=== PATIENT | male | born 1965 ===

== ENCOUNTER 2021-05-13 18:20 | Emergency (ER) | payer OTHER, SELFPAY ==
[2021-05-13 18:26] VITALS: BP 148/107; PULSE 96; RESP 18; TEMP 36.4; O2SAT 98
--- NOTE | 2021-05-13 18:30 | DI.RAD_ITS ---
Exam(s) XR SHOULDER RT COMPLETE 2+V EXAM: XR SHOULDER RT COMPLETE 2+V CLINICAL HISTORY: proximal humerus pain. TECHNIQUE: 2D digital imaging was performed. COMPARISON: No exams were available for comparison FINDINGS: BONES: No acute fracture is present. No bony destructive lesion is seen. JOINTS: No dislocation present.Degenerative changes AC joint and glenohumeral joint. SOFT TISSUE: Tiny calcification adjacent to humeral head likely calcific tendinosis. IMPRESSION: Degenerative changes. No acute abnormality. DATA REPOSITORY: RADIATION DOSE DELIVERED:
--- NOTE | 2021-05-13 18:37 | ED.GENADUL_ITS ---
Discharge Plan Disposition Patient Disposition: HOME Condition: Improving Discharge Details Clinical Impression: Injury of right shoulder Primary Care Provider: Yusra,[facility] ED Provider: Elian Miner Home Meds and New Rx's Prescriptions: Continued lisinopril-hydrochlorothiazide 20-25 mg Tablet 1 tab PO DAILY RF: 0 pantoprazole 20 mg Tablet,Delayed Release (Dr/Ec) 40 mg PO DAILY RF: 0 pregabalin [Lyrica] 150 mg Capsule 150 mg PO BID RF: 0 Discharge Instructions Instructions: Shoulder Sprain (ED), Shoulder Pain (ED) Additional Instructions: As we discussed, your x-ray does not show any bony injury nor malalignment/dislocation. It did show evidence of rotator cuff calcific tendinopathy which can cause some acute pain. You may still have suffered a soft tissue injury such as rotator cuff injury and will require follow-up with your family orthopedic group. Please call on Saturday or Saturday for an appointment time this week. Apply ice 20 minutes at a time to reduce pain and swelling. May use the provided hydrocodone with Tylenol 1 to 2 tablets every 4-6 hours as needed for pain. You will be provided a copy of your radiology imaging. Wear sling while awake and out of bed, may remove for showering and at bedtime. Return or see nearest health care facility for increasing discomfort, development of shortness of breath, or any other acute concerns. You will likely have increased muscular soreness tomorrow morning. Medical Decision Making 56-year-old male was hiking, descending when he slipped and fell with his right arm outstretched. Did not strike his head or have a loss of consciousness. He reports onset of right shoulder pain and swelling. [place] to [place] ER with his loan services professional. Exam reveals a swollen and tender right proximal humerus. Sensation and motor function are preserved. Differential diagnosis includes glenohumeral subluxation, dislocation, contusion, bony fracture, soft tissue injury such as rotator cuff disruption. Patient given IM analgesia, ice, referred for x-ray. X-ray does note calcific rotator cuff tendinopathy. There is no acute fracture or malalignment present. Discussed with patient my concern for possible soft tissue/rotator cuff injury. He has an orthopedic group at his home [place] that he is followed with before and feels confident he will be able to see them this week for recheck. He was consented for the use of oral narcotic analgesia, he was given a copy of his images, placed in a sling with ice and will be driven home by his loan services professional. HPI General Mode of arrival: ambulatory . Date/Time Provider Initiated Documentation: 05/13/21 18:21 . Limitations to Documentation: no limitations . Information obtained by: patient . History of Present Illness 56 year old M presents to the emergency department with the chief complaint of Right shoulder pain, described as moderate, Quality is described as dull and constant, and is localized to the right and upper extremity. Patient reports no radiation. Patient started experiencing this hour(s) and it has been constant. No relieving factors improve symptom(s), Movement worsens symptoms . Patient notes denies chest pain, headaches and syncope. Patient did receive the following treatments prior to arrival, none Related Data Home Medications Medication Instructions Recorded Confirmed lisinopril-hydrochlorothiazide 1 tab PO DAILY 05/13/21 05/13/21 pantoprazole 40 mg PO DAILY 05/13/21 05/13/21 pregabalin [Lyrica] 150 mg PO BID 05/13/21 05/13/21 Allergies Allergy/AdvReac Type Severity Reaction Status Date / Time No Known Allergies Allergy Unverified 05/13/21 18:29 General Stated Complaint: Orthopedic JEFFREY: 3 Review of Systems Narrative: Denies loss of consciousness. No head/neck/back/chest/abdomen injury. [facility] Social History Smoking/Tobacco Use Status: Former Tobacco Use Smoking risk assessment performed?: Yes Substance use type: does not use Do you feel safe at home: Yes Do you feel safe in your relationship?: Yes Exam Narrative Exam Narrative: GEN: awake, alert, oriented 3. Pleasant, well groomed, interactive. HEAD: Normocephalic, atraumatic ENT: Mucous membranes moist, oropharynx unremarkable, External ear exam unremarkable EYES: PERRL, EOMI NECK: Nontender, full ROM, no ZANA, no menigismus CHEST/RESP: Nontender, clear to auscultation bilateral, no wheeze/rhonchi/rales CARDIOVASCULAR: RRR, no murmur, rub dwayne. 2+ Rad pulse bilateral ABDOMEN: Soft, nontender, no mass. +Bowel sounds EXT: Normal range of motion at the right elbow. Distal motor is intact patient able to demonstrate making the okay sign, cross long finger over index and touch thumb to pinky. Normal sensation. Right proximal humerus swelling and tenderness to palpation. Neuro: Grossly normal neurologic exam, conversant, interactive. Psych: Speech fluent, thoughts congruent, affect normal Course Vital Signs Vital signs: Vital Signs Temperature 36.4 C L 05/13/21 18:26 Pulse 96 H 05/13/21 18:26 Respiratory Rate 18 05/13/21 18:26 Blood Pressure 148/107 H 05/13/21 18:26 Pulse Oximetry 98 05/13/21 18:26 Temperature 36.4 C L 05/13/21 18:26 Temperature Source Temporal Artery Scan 05/13/21 18:26 Pulse 96 H 05/13/21 18:26 Respiratory Rate 18 05/13/21 18:26 Blood Pressure 148/107 H 05/13/21 18:26 Blood Pressure Position Sitting 05/13/21 18:26 Pulse Oximetry 98 05/13/21 18:26 Oxygen Delivery Method Room Air 05/13/21 18:26 Oxygen Flow Rate 0 05/13/21 18:26 Pain Level 8 05/13/21 18:26
[2021-05-13] MEDS: HYDROmorphone 2 MG/ML VIAL 1 MG IM (18:41)
--- NOTE | 2021-05-13 19:27 | DI.VRAD_ITS ---
PROCEDURE INFORMATION: Exam: XR Right Shoulder Exam date and time: 05/13/2021 6:37 PM Age: 56 years old Clinical indication: Patient HX: Proximal humerus pain, right shoulder pain, PT fell onto right outstretched arm. TECHNIQUE: Imaging protocol: XR Right shoulder. Views: 2 or more views. Total images: 4 COMPARISON: No relevant prior studies available. FINDINGS: Bones/joints: There is calcific rotator cuff tendinopathy. No acute fracture or malalignment. Soft tissues: Normal. IMPRESSION: 1. Calcific rotator cuff tendinopathy. 2. No acute fracture or malalignment. Dictated and Authenticated by: Ashley Salamanca MD. Ordering:GRETCHEN Plummer MD
[2021-05-13 19:33] VITALS: BP 145/107; PULSE 92; RESP 17; O2SAT 95
[2021-05-13] MEDS: HYDROcodone 5/Acetaminophen 325 TAB PO (19:50)
== END 2021-05-13 19:50 | disposition home or self-care (01) ==
PROVIDERS: Emergency Provider Emergency Medicine
DX: S49.81XA Other specified injuries of right shoulder and upper arm, initial encounter (principal); W18.30XA Fall on same level, unspecified, initial encounter; Y93.01 Activity, walking, marching and hiking
CPT/HCPCS: 96372; 99284; 73030; 99283